=== PATIENT | female | born 1965 | race Caucasian/White ===

== ENCOUNTER → 2017-05-21 | Outpatient (CLI) | payer MEDICAID ==
--- NOTE | 2017-05-25 07:17 | MR ---
EXAMINATION TYPE: MR tib fib RT wo con DATE OF EXAM: 05/21/2017 COMPARISON: NONE HISTORY: Pain in lower leg,M84.361A Stress fx right TECHNIQUE: Multiplanar, multisequence images of the right tibia and fibula were acquired. Diffusion w eighted imaging was performed. FINDINGS: Focal bone marrow edema within the distal tibia extends over approximately 6.6 cm such as on coronal fat-sat PD series image 8. Anterior to this on axial T2 sequence there is focal subcutaneous edema. B one marrow edema is visible on T2/PD has increased signal as well as on 1 as decreased signal. Just s uperior to the predominance of bone marrow signal changes there is focal linear intracortical signal change on PD sagittal image 14 corresponding the patient's focal site of pain marked overlying skin s urface compatible with grade IVb medial tibial stress syndrome located approximately 11 cm above the talotibial joint. Changes distal of this are compatible with grade 3 medial stress syndrome of the mo re distal tibia. Muscle volume and signal characteristics are within normal limits. Achilles tendon is unremarkable an d intact. No aggressive changes are seen to the cortical bone of the tibia or fibula such as endostea l scalloping or cortical thickening. Talar dome appears intact and of normal morphology. No osteochon dral defect is present. No displaced fracture seen. IMPRESSION: Findings compatible with grade 4V medial tibial stress syndrome on the mid to distal diaphysis of th e tibia with more distal bone marrow edema of the tibial diaphysis compatible with grade 3 medial str ucture syndrome. No displaced fracture.
== END | disposition home or self-care (01) ==
LOC: RADMRIMAIN 20:36
PROVIDERS: ATTEND Orthopaedic Surgery
DX: M84.361A Stress fracture, right tibia, initial encounter for fracture (principal)

== ENCOUNTER → 2017-08-14 | Day surgery (SDC) | payer MEDICAID ==
[2017-08-13 09:46] VITALS: BMI 25.2
[~2017-08-14] MED LIST: LACTATED RINGERS 1,000 ML IV SCH; MIDAZOLAM 2 MG/2 ML VIAL ONE; PROPOFOL 10 MG/ML 20 ML VIAL IV ONE; fentaNYL (PF) 50 MCG/ML 2 ML AMP ONE
[2017-08-14 08:39] VITALS: TEMP 96.2
--- NOTE | 2017-08-14 09:29 | P.PCN ---
Date of Procedure: 08/14/17 Procedure(s) Performed: BRIEF HISTORY: Patient is a 51-year-old pleasant white female, scheduled for an elective colonoscopy as a part of screening for colorectal neoplasia. PROCEDURE PERFORMED: Colonoscopy with snare polypectomy PREOPERATIVE DIAGNOSIS: Screening for colon cancer. IV sedation per Anesthesia. PROCEDURE: After informed consent was obtained, the patient, was brought into the endoscopy unit. IV sedation was administered by Anesthesia under continuous monitoring. Digital rectal examination was normal. Initially the Olympus CF- 160 flexible video colonoscope was then inserted in the rectum, gradually advanced into the cecum without any difficulty. Careful examination was performed as the scope was gradually being withdrawn. Ileocecal valve and the appendiceal orifice were visualized and appeared normal. Prep was excellent. Mucosa of the cecum, appeared normal. In the ascending colon there was a 5 mm polyp that was removed by snare polypectomy. Rest of the ascending colon, transverse colon, descending colon, sigmoid colon, and rectum appeared normal. Retroflexion was performed in the rectum and no lesions were seen. The patient tolerated the procedure well. IMPRESSION: 5 mm ascending colon polyp status post snare polypectomy. Rest of the colon appeared normal. RECOMMENDATIONS: Findings of this examination were discussed with the patient as well as her family. She was advised to follow with the biopsy results. If the biopsy shows a tubular adenoma she can have a repeat colonoscopy in 5 years.
[2017-08-14 10:00] VITALS: BP 125/82; PULSE 70; RESP 18
== END ==
LOC: ORWHC2ENDO 07:54
PROVIDERS: ATTEND Internal Medicine Gastroenterology
DX: Z12.11 Encounter for screening for malignant neoplasm of colon (principal); D12.2 Benign neoplasm of ascending colon; Z88.5 Allergy status to narcotic agent
CPT/HCPCS: 88305; 45385; J2250; J3010; J2704

== ENCOUNTER → 2019-01-12 | Outpatient (CLI) | payer MEDICAID ==
--- NOTE | 2019-01-13 09:56 | MM ---
Reason for exam: screening (asymptomatic). Last mammogram was performed 1 year and 6 months ago. History: Patient is postmenopausal. Cyst aspiration of the left breast, 2009. Cyst aspiration of the left breast, 1999. Physical Findings: A clinical breast exam by your physician is recommended on an annual basis and results should be correlated with mammographic findings. MG 3D Screening Mammo W/Cad Bilateral CC and MLO view(s) were taken. Prior study comparison: July 10, 2017, bilateral MG 3d screening mammo w/cad. May 03, 2015, bilateral MG work up mamm w CAD BILAT. The breast tissue is extremely dense which could obscure a lesion on mammography. Benign appearing bilateral calcifications. No significant changes when compared with prior studies. ASSESSMENT: Benign, BI-RAD 2 RECOMMENDATION: Routine screening mammogram of both breasts in 1 year.
== END | disposition home or self-care (01) ==
LOC: RADMAMWWP 16:31
PROVIDERS: ATTEND Obstetrics & Gynecology
DX: Z12.31 Encounter for screening mammogram for malignant neoplasm of breast (principal)
CPT/HCPCS: 77063; 77067

== ENCOUNTER → 2020-02-01 | Outpatient (CLI) | payer MEDICAID ==
[2020-02-01 08:47] LABS: HCT 40.6 % (34.0-46.0); HGB 13.5 gm/dL (11.4-16.0); MCH 30.7 pg (25.0-35.0); MCHC 33.3 g/dL (31.0-37.0); MCV 92.1 fL (80.0-100.0); Mean Platelet Volume 7.4; Platelet Count 196 k/uL (150-450); RBC 4.41 m/uL (3.80-5.40); RDW 12.4 % (11.5-15.5); WBC 4.1 k/uL (3.8-10.6)
[2020-02-01 18:39] LABS: African American GFR (CKD) 96.2 (60.0-200.0); Albumin 4.2 g/dL (3.80-4.90); Anion Gap 8.7 mmol/L (4.00-12.00); BUN/Creat Ratio 21.25 Ratio (12.00-20.00); Carbon Dioxide 26.3 mmol/L (21.6-31.8); Chol/HDL Ratio 2.23; Globulin 2.1 g/dL (1.6-3.3); LDL Cholesterol,Calculated 92.6 mg/dL (0.0-131.0); Potassium 4.3 mmol/L (3.5-5.5); Total Bilirubin 0.4 mg/dL (0.2-1.2); Total Protein 6.3 g/dL (6.2-8.2); VLDL Calculation 14.4 mg/dL (5.00-40.00)
[2020-02-01 18:46] LABS: T4, Free (Free Thyroxine) 1.2 ng/dL (0.80-1.80)
== END | disposition home or self-care (01) ==
LOC: LABWHC1 07:50
PROVIDERS: ATTEND Obstetrics & Gynecology
DX: I10 Essential (primary) hypertension (principal); Z13.220 Encounter for screening for lipoid disorders; Z13.29 Encounter for screening for other suspected endocrine disorder
CPT/HCPCS: 36415; 80053; 80061; 84439; 84443; 84479; 85027

== ENCOUNTER → 2021-01-22 | Outpatient (CLI) | payer MEDICAID ==
--- NOTE | 2021-01-22 11:57 | MM ---
Reason for exam: screening (asymptomatic). Last mammogram was performed 2 years ago. History: Patient is postmenopausal. Cyst aspiration of the left breast, 2009. Cyst aspiration of the left breast, 1999. Physical Findings: A clinical breast exam by your physician is recommended on an annual basis and results should be correlated with mammographic findings. MG 3D Screening Mammo W/Cad Bilateral CC and MLO view(s) were taken. Prior study comparison: January 12, 2019, bilateral MG 3d screening mammo w/cad. July 10, 2017, bilateral MG 3d screening mammo w/cad. The breast tissue is heterogeneously dense. This may lower the sensitivity of mammography. ASSESSMENT: Negative, BI-RAD 1 RECOMMENDATION: Routine screening mammogram of both breasts in 1 year.
== END | disposition home or self-care (01) ==
LOC: RADMAMWWP 07:15
PROVIDERS: ATTEND Obstetrics & Gynecology
DX: Z12.31 Encounter for screening mammogram for malignant neoplasm of breast (principal); Z78.0 Asymptomatic menopausal state
CPT/HCPCS: 77063; 77067

== ENCOUNTER → 2021-03-04 | Outpatient (CLI) | payer MEDICAID ==
--- NOTE | 2021-03-04 13:00 | ECHOF ---
Referral Reason:I10 Hypertension MEASUREMENTS -------- HEIGHT: 165.1 cm WEIGHT: 64.4 kg BP: RVIDd: 3.7 cm (< 3.3) IVSd: 1.1 cm (0.6 - 1.1) LVIDd: 3.9 cm (3.9 - 5.3) LVPWd: 1.1 cm (0.6 - 1.1) IVSs: 1.5 cm LVIDs: 2.1 cm LVPWs: 2.0 cm LAESV Index (A-L): 32.77 ml/m Ao Diam: 2.1 cm (2.0 - 3.7) AV Cusp: 1.7 cm (1.5 - 2.6) LA Diam: 3.7 cm (2.7 - 3.8) MV EXCURSION: 24.324 mm (> 18.000) MV EF SLOPE: 108 mm/s (70 - 150) EPSS: 0.2 cm MV E Cong: 0.48 m/s MV DecT: 288 ms MV A Cong: 0.43 m/s MV E/A Ratio: 1.11 RAP: 5.00 mmHg RVSP: 22.84 mmHg FINDINGS -------- Sinus rhythm. This was a technically adequate study. The left ventricular size is normal. Left ventricular wall thickness is normal. Overall left vent ricular systolic function is normal with, an EF between 55 - 60 %. The diastolic filling pattern is normal for the age of the patient 6.96. The right ventricle is mildly enlarged. LA is midly dilated 29-33ml/m2. The right atrial size is normal. Interatrial and interventricular septum intact. The aortic valve is trileaflet, and appears structurally normal. No aortic stenosis or regurgitation. The mitral valve is normal. Mild mitral regurgitation is present. The tricuspid valve appears structurally normal. Mild tricuspid regurgitation present. There is n o evidence of pulmonary hypertension. Trace/mild (physiologic) pulmonic regurgitation. The aortic root size is normal. Normal inferior vena cava with normal inspiratory collapse consistent with estimated right atrial pre ssure of 5 mmHg. There is no pericardial effusion. CONCLUSIONS -------- 1. Left ventricular wall thickness is normal. 2. Overall left ventricular systolic function is normal with, an EF between 55 - 60 %. 3. The right ventricle is mildly enlarged. 4. LA is midly dilated 29-33ml/m2. 5. The aortic valve is trileaflet, and appears structurally normal. No aortic stenosis or regurgitati on. 6. Mild mitral regurgitation is present. 7. Mild tricuspid regurgitation present. 8. Trace/mild (physiologic) pulmonic regurgitation. 9. There is no pericardial effusion. EMPLOYEE SERVICE OFFICER: Temi Baker RDCS
== END | disposition home or self-care (01) ==
LOC: RADECHMAIN 11:48
PROVIDERS: ATTEND Internal Medicine Interventional Cardiology
DX: I08.1 Rheumatic disorders of both mitral and tricuspid valves (principal); I37.1 Nonrheumatic pulmonary valve insufficiency
CPT/HCPCS: 93306

== ENCOUNTER → 2021-08-05 | Outpatient (CLI) | payer MEDICAID ==
[2021-08-05 19:13] LABS: HCT 40.2 % (37.2-46.3); HGB 13.1 g/dL (12.0-15.0); MCH 29.9 pg (27.0-32.0); MCHC 32.6 g/dL (32.0-37.0); MCV 91.8 fL (80.0-97.0); Mean Platelet Volume 10.5 fL (9.5-12.2); Platelet Count 222 X 10*3/uL (140-440); RBC 4.38 X 10*6/uL (4.10-5.20); WBC 5.11 X 10*3/uL (4.50-10.00)
[2021-08-05 21:24] LABS: ALT 29 U/L (8-44); AST 31 U/L (13-35); African American GFR (CKD) 97.9 (60.0-200.0); Albumin 4.6 g/dL (3.8-4.9); Albumin/Globulin Ratio 2.16 (1.60-3.17); Alkaline Phosphatase 64 U/L (41-126); BUN/Creat Ratio 15.05 Ratio (12.00-20.00); Blood Urea Nitrogen 11.8 mg/dL (9.0-27.0); Calcium 9.4 mg/dL (8.7-10.3); Chloride 103 mmol/L (96-109); Chol/HDL Ratio 2.42 Ratio; Globulin 2.1 g/dL (1.6-3.3); Glucose 89 mg/dL (70-110); LDL Cholesterol,Calculated 120.4 mg/dL (0.0-131.0); Non-African American GFR(CKD) 84.5 (60.0-200.0); Potassium 3.9 mmol/L (3.5-5.5); Sodium 142 mmol/L (135-145); Total Protein 6.7 g/dL (6.2-8.2); VLDL Calculation 13.34 mg/dL (5.00-40.00)
== END | disposition home or self-care (01) ==
LOC: LABWHC1 11:10
PROVIDERS: ATTEND Obstetrics & Gynecology
DX: Z13.220 Encounter for screening for lipoid disorders (principal); Z13.29 Encounter for screening for other suspected endocrine disorder; I10 Essential (primary) hypertension
CPT/HCPCS: 36415; 80053; 80061; 84439; 84443; 84479; 85027

== ENCOUNTER → 2021-08-05 | Outpatient (CLI) | payer MEDICAID ==
--- NOTE | 2021-08-05 12:00 | P.STRESS ---
- Stress Test Note Stress Test Results/Findings: Exam Performed: stress echo exercise Exam Date: 08/05/21 Reason for Exam: CHEST PAIN Height: 5 ft 5 in Weight: 62.7 kg Protocol: STRESS ECHO Stage: 5 Duration of Exercise: 14:14 Resting Heart Rate: 75 Resting Blood Pressure: 155/97 Maximum Achieved Heart Rate: 179 Maximum Achieved Blood Pressure: 201/99 85% PMHR: 139 100% PMHR: 164 METS: 14.7 Technologist Comment: Stress Test Results/Findings: Patient underwent exercise stress echo with a Les protocol treadmill stress test. Patient exercised into Stage 5 for a total of 14 minutes 14 seconds reaching a total of 14.7 METS. Patient's maximum heart rate was 179 which represented 100% age-predicted maximum heart rate. Stress EKG portion: At baseline patient's EKG showed normal sinus rhythm, normal axis, no significant ST or T-wave abnormalities. At peak exercise, EKG showed no significant ST or T wave abnormalities. Stress echo portion: 2-D echocardiogram was performed in the parasternal long, personal short, apical 2 and apical four-chamber views at rest, peak exercise and in recovery. At baseline, echocardiogram showed left ventricular ejection fraction 60% without wall motion abnormalities. With peak exercise, echocardiogram shows improvement in left ventricular ejection fraction, increase contractility, decrease in left ventricular end systolic dimension without wall motion abnormalities consistent with a normal response to exercise. Conclusions: 1. Normal EKG and echo response to exercise without evidence of inducible ischemia. 2. Excellent exercise capacity. 3. EF 60%
== END | disposition home or self-care (01) ==
LOC: RADNMMAIN 09:50
PROVIDERS: ATTEND Internal Medicine Interventional Cardiology
DX: R07.9 Chest pain, unspecified (principal)
CPT/HCPCS: 93351

== ENCOUNTER → 2022-06-25 | Outpatient (CLI) | payer MEDICAID ==
--- NOTE | 2022-06-27 18:35 | MM ---
Reason for Exam: Screening (asymptomatic). Last mammogram was performed 1 year(s) and 5 month(s) ago. Patient History: Menarche at age 11. First Full-Term at age 20. Hysterectomy at age 33. Postmenopausal. Patient has history of breast feeding. 1999, Cyst Aspiration on the Left side. 2009, Cyst Aspiration on the Left side. Risk Values: Alisa 5 year model risk: 1.1%. NCI Lifetime model risk: 7.1%. Prior Study Comparison: 12/10/2008 Screening Mammogram, [facility]. 06/07/2010 Bilateral Diagnostic Mammogram, [facility]. 06/07/2010 Bilateral Diagnostic Ultrasound, [facility]. 09/06/2012 Bilateral Screening Mammogram, [facility]. 09/13/2012 Left Diagnostic Mammogram, [facility]. 09/13/2012 Left Diagnostic Ultrasound, [facility]. 10/25/2013 Bilateral Screening Mammogram, [facility]. 04/30/2015 Bilateral Screening Mammogram, [facility]. 05/03/2015 Bilateral Diagnostic Mammogram, [facility]. 07/10/2017 Bilateral Screening Mammogram, [facility]. 01/12/2019 Bilateral Screening Mammogram, [facility]. 01/22/2021 Bilateral Screening Mammogram, [facility]. Tissue Density: The breast tissue is heterogeneously dense. This may lower the sensitivity of mammography. Findings: Analyzed By CAD. New 6 mm round mass far posterior 6:00 right breast. Further evaluation is recommended. A few scattered punctate microcalcifications are redemonstrated. No significant change from prior exams. Overall Assessment: Incomplete: need additional imaging evaluation, BI-RAD 0 Management: Special View Mammogram of the right breast. Diagnostic Breast Ultrasound of the right breast. Additional views to include 3-D lateral (including far posterior tissues). Also, whole right breast ultrasound given the dense tissues. Particular attention to the 6:[address] [facility] will attempt to contact patient to return for supplemental views and ultrasound if indicated. Electronically signed and approved by: Eliseo Hooks M.D. Radiologist
== END | disposition home or self-care (01) ==
LOC: RADMAMWWP 15:12
PROVIDERS: ATTEND Obstetrics & Gynecology
DX: Z12.31 Encounter for screening mammogram for malignant neoplasm of breast (principal); Z78.0 Asymptomatic menopausal state
CPT/HCPCS: 77063; 77067

== ENCOUNTER → 2022-07-01 | Outpatient (CLI) | payer MEDICAID ==
--- NOTE | 2022-07-01 16:43 | USB ---
Reason for Exam: Additional evaluation requested from abnormal screening. Patient History: Menarche at age 11. First Full-Term at age 20. Hysterectomy at age 33. Postmenopausal. Patient has history of breast feeding. 1999, Cyst Aspiration on the Left side. 2009, Cyst Aspiration on the Left side. Risk Values: Alisa 5 year model risk: 1.1%. NCI Lifetime model risk: 7.1%. Technique: Method: Targeted. Prior Study Comparison: 01/12/2019 Bilateral Screening Mammogram, [facility]. 01/22/2021 Bilateral Screening Mammogram, [facility]. 06/25/2022 Bilateral MG 3D screening mammo w/cad, [facility]. Findings: The lower section of the breast of the right breast, the axilla of the right breast and the retroareolar of the right breast were scanned. There is a benign simple appearing cyst measuring 0.5 x 0.4 x 0.5 cm at the 7:00 position 6 cm nipple. This corresponds to the finding. Overall Assessment: Benign, BI-RAD 2 Management: Screening Mammogram of both breasts in 1 year. A clinical breast exam by your physician is recommended on an annual basis and results should be correlated with mammographic findings. This exam should not preclude additional follow-up of suspicious palpable abnormalities. ??Results were given to the patient verbally at the time of exam. Electronically signed and approved by: Steven Aguilar D.O. Radiologis
--- NOTE | 2022-07-01 16:45 | MM ---
Reason for Exam: Additional evaluation requested from abnormal screening. Last screening mammogram was performed less than 1 month ago. Patient History: Menarche at age 11. First Full-Term at age 20. Hysterectomy at age 33. Postmenopausal. Patient has history of breast feeding. 1999, Cyst Aspiration on the Left side. 2009, Cyst Aspiration on the Left side. Risk Values: Alisa 5 year model risk: 1.1%. NCI Lifetime model risk: 7.1%. Prior Study Comparison: 07/10/2017 Bilateral Screening Mammogram, [facility]. 01/12/2019 Bilateral Screening Mammogram, [facility]. 01/22/2021 Bilateral Screening Mammogram, [facility]. 06/25/2022 Bilateral MG 3D screening mammo w/cad, [facility]. Tissue Density: Right: The breast tissue is heterogeneously dense. This may lower the sensitivity of mammography. Findings: Analyzed By CAD. The 6 mm rounded density in the lower outer aspect right breast appears persistent on compression images. Additional evaluation with ultrasound is recommended. No other suspicious groups of microcalcifications, spiculated or lobular masses, architectural distortion or other secondary signs of malignancy are mammographically apparent. Overall Assessment: Incomplete: need additional imaging evaluation, BI-RAD 0 Management: Diagnostic Breast Ultrasound of the right breast. A negative mammogram report should not preclude additional follow up of suspicious palpable abnormalities. Patient should continue monthly self breast exam. A clinical breast exam by your physician is recommended on an annual basis and results should be correlated with mammographic findings. Electronically signed and approved by: Steven Aguilar D.O. Radiologis
== END | disposition home or self-care (01) ==
LOC: RADMAMWWP 13:33
PROVIDERS: ATTEND Obstetrics & Gynecology
DX: R92.8 Other abnormal and inconclusive findings on diagnostic imaging of breast (principal); Z78.0 Asymptomatic menopausal state; Z98.890 Other specified postprocedural states
CPT/HCPCS: 77061; 77065